=== PATIENT | female | born 1975 | race Caucasian/White ===

== ENCOUNTER 2025-05-13 07:56 | Outpatient (CLI) | payer OTHER, SELFPAY | END 2025-05-13 07:57 | disposition home or self-care (01) | PROVIDERS: PCP Family Medicine; Visit Provider Family Medicine | DX: E78.5 Hyperlipidemia, unspecified (principal); R73.03 Prediabetes; R53.83 Other fatigue; R19.7 Diarrhea, unspecified | CPT/HCPCS: 80053; 80061; 84443 ==

== ENCOUNTER 2025-05-18 06:00 | Outpatient (CLI) | payer OTHER, SELFPAY | END 2025-05-18 06:01 | disposition home or self-care (01) | LOC: NFLDREF 05-25 04:07 | PROVIDERS: PCP Family Medicine; Referring Provider Family Medicine; Visit Provider Family Medicine | DX: R19.7 Diarrhea, unspecified (principal) | CPT/HCPCS: 87045; 87046; 87177; 87209; 87427; 87493; 87505 ==

== ENCOUNTER 2025-06-21 06:31 | Outpatient (CLI) | payer OTHER, SELFPAY ==
--- NOTE | 2025-06-21 07:45 | P.ANES_ITS ---
Anesthesia Charges Start Date/Time Anesthesia Start Date: 06/21/25 Anesthesia Start Time: 07:23 Stop Date/Time Anesthesia Stop Date: 06/21/25 Anesthesia Stop Time: 07:40 Coding CPT Codes CPT Codes: ANES LWR INTST SCR COLSC - [id number] ([id number]) P1 - NORMAL HEALTHY PATIENT, QK - TUBE MAKER 2-4 CNCRNT ANES PROC
--- NOTE | 2025-06-21 07:45 | W.ANESCHARGE ---
Anesthesia Charges Start Date/Time Anesthesia Start Date: 06/21/25 Anesthesia Start Time: 07:23 Stop Date/Time Anesthesia Stop Date: 06/21/25 Anesthesia Stop Time: 07:40 Coding CPT Codes CPT Codes: ANES LWR INTST SCR COLSC - [id number] ([id number]) P1 - NORMAL HEALTHY PATIENT, QK - FURNACE FEEDER 2-4 CNCRNT ANES PROC
--- NOTE | 2025-06-21 09:45 | P.ANES_ITS ---
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
--- NOTE | 2025-06-21 09:45 | W.ANESCHARGE ---
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
== END 2025-06-21 06:32 | disposition home or self-care (01) ==
LOC: OP CLINIC 06:33
PROVIDERS: PCP Family Medicine; Visit Provider Internal Medicine
DX: Z12.11 Encounter for screening for malignant neoplasm of colon (principal); K57.30 Diverticulosis of large intestine without perforation or abscess without bleeding
CPT/HCPCS: 00812; 45378; J2704